=== PATIENT | female | born 1975 | race Hispanic/Latino ===

== ENCOUNTER 2018-04-02 12:46 | Outpatient (CLI) | payer OTHER | END 2018-04-02 12:47 | disposition home or self-care (01) | LOC: BICMAMMO 12:46 | PROVIDERS: ATTEND Nurse Practitioner Family | DX: Z12.31 Encounter for screening mammogram for malignant neoplasm of breast (principal); N63.10 Unspecified lump in the right breast, unspecified quadrant | CPT/HCPCS: 77063; 77067 ==

== ENCOUNTER 2018-04-15 09:46 | Outpatient (CLI) | payer OTHER ==
--- NOTE | 2018-04-15 10:51 | ULT ---
SONOGRAM RIGHT BREAST LIMITED: History: Abnormal mammogram. Right breast mass. FINDINGS: Sonographic evaluation of the lateral aspect of the right breast in the region of mammographic concer n shows scattered fibroglandular densities. A well circumscribed slightly lobular oval hypoechoic mas s with an essentric hyperechoic vascular hilum measures up to 0.8 cm length. This has the appearance of an intramamillary lymph node. No other masses are apparent. IMPRESSION: BIRADS category 2 - benign findings. Suggest routine mammographic follow up. POS: [facility]
== END 2018-04-15 09:47 | disposition home or self-care (01) ==
LOC: BICULT 09:46
PROVIDERS: ATTEND Nurse Practitioner Family
DX: N63.10 Unspecified lump in the right breast, unspecified quadrant (principal)